=== PATIENT | female | born 1950 | race Caucasian/White ===

== ENCOUNTER → 2016-11-05 | Outpatient (CLI) | payer MEDICARE ==
[~2016-11-05] MED LIST: ASA CHILDREN'S81 MG PO; ASPIRIN EC81 MG PO; ATORVASTATIN CA80 MG PO; CALCIUM500 MG PO; CELEBREX200 MG PO; CINNAMON500 MG PO; CLARITIN DPS10 MG PO; CORTISPORIN OTI10 ML AU; DESYREL-DPS50 MG PO; EFFEXOR XR DPS150 MG PO; FEOSOL-DPS325 MG PO; FEOSOL45 MG PO; FLONASE 0.05% D16 GM NS; HYZAAR-100/251 TAB PO; IMDUR DPS30 MG PO; L-LYSINE500 M1 PO; LABETALOL HCL300 MG PO; LASIX DPS40 MG PO; LIPITOR DPS40 MG PO; LORTAB 7.5-3251 EACH PO; LOSARTAN-HCTZ1 EAC1 PO; LYSINE1000 MG PO; MAALOX DPS30 ML PO; NEPHRO-VITE1 TAB PO; NORCO 5-325 TA1 EACH PO; NORVASC5 MG PO; PLAQUENIL DPS200 MG PO; PRILOSEC DPS20 MG PO; PROTONIX40 MG PO; REQUIP DPS0.5 MG PO; REQUIP DPS2 MG PO; REQUIP4 MG PO; SURFAK DPS240 MG PO; THERA1 EACH PO; TRANDATE300 MG PO; TYLENOL DPS325 MG PO; ULTRAM DPS50 MG PO; VENLAFAXINE HC225 MG PO; VITAMIN B-121000 MCG PO; VITAMIN D50000 UNIT PO
== END | disposition home or self-care (01) ==
LOC: RAD.S 10:19
DX: R10.13 Epigastric pain (principal); R13.10 Dysphagia, unspecified; K44.9 Diaphragmatic hernia without obstruction or gangrene; K21.9 Gastro-esophageal reflux disease without esophagitis

== ENCOUNTER → 2016-12-05 | Outpatient (CLI) | payer MEDICARE | END | disposition home or self-care (01) | LOC: PTH.S 09:37 | DX: Z01.812 Encounter for preprocedural laboratory examination (principal) ==

== ENCOUNTER 2016-12-11 05:23 | Inpatient (IN) | payer MEDICARE ==
[~2016-12-11] VITALS: Ht 148.6 cm; Wt 88.0 kg
[~2016-12-11 05:23] MED LIST changes: -ASPIRIN EC81 MG PO; -ATORVASTATIN CA80 MG PO; -CINNAMON500 MG PO; -DESYREL-DPS50 MG PO; -FEOSOL-DPS325 MG PO; -FLONASE 0.05% D16 GM NS; -L-LYSINE500 M1 PO; -LABETALOL HCL300 MG PO; -LOSARTAN-HCTZ1 EAC1 PO; -NORCO 5-325 TA1 EACH PO; -PRILOSEC DPS20 MG PO; -REQUIP4 MG PO; -ULTRAM DPS50 MG PO; -VENLAFAXINE HC225 MG PO; -VITAMIN B-121000 MCG PO
[2016-12-14] MEDS ORDERED: ATORVASTATIN CA80 MG PO (17:40)
[2016-12-14] MEDS ORDERED: DESYREL-DPS50 MG PO (17:41)
[2016-12-14] MEDS ORDERED: REQUIP DPS0.5 MG PO (17:42)
[2016-12-14] MEDS ORDERED: REQUIP4 MG PO (17:42)
[2016-12-14] MEDS ORDERED: ULTRAM DPS50 MG PO (17:43)
[2016-12-14] MEDS ORDERED: LOSARTAN-HCTZ1 EAC1 PO (17:44)
[2016-12-14] MEDS ORDERED: PLAQUENIL DPS200 MG PO (17:44)
[2016-12-14] MEDS ORDERED: CELEBREX200 MG PO (17:45)
[2016-12-14] MEDS ORDERED: VENLAFAXINE HC225 MG PO (17:45)
[2016-12-14] MEDS ORDERED: LABETALOL HCL300 MG PO (17:45)
[2016-12-14] MEDS ORDERED: IMDUR DPS30 MG PO (17:45)
[2016-12-14] MEDS ORDERED: VITAMIN D50000 UNIT PO (17:46)
[2016-12-14] MEDS ORDERED: ASPIRIN EC81 MG PO (17:46)
[2016-12-14] MEDS ORDERED: L-LYSINE500 M1 PO (17:47)
[2016-12-14] MEDS ORDERED: CINNAMON500 MG PO (17:47)
[2016-12-14] MEDS ORDERED: CLARITIN DPS10 MG PO (17:48)
[2016-12-14] MEDS ORDERED: NORVASC5 MG PO (17:48)
[2016-12-14] MEDS ORDERED: FEOSOL-DPS325 MG PO (17:48)
[2016-12-14] MEDS ORDERED: VITAMIN B-121000 MCG PO (17:48)
[2016-12-14] MEDS ORDERED: NORCO 5-325 TA1 EACH PO (17:49)
[2016-12-14] MEDS ORDERED: PRILOSEC DPS20 MG PO (17:49)
[2016-12-14] MEDS ORDERED: FLONASE 0.05% D16 GM NS (17:49)
[2016-12-14] MEDS ORDERED: TYLENOL DPS325 MG PO (17:50)
--- NOTE | 2016-12-24 08:17 | DS ---
ADMIT: 12/11/2016 RM/LOC: 430 [facility] MR#: [id number] [id number] FRANCHESKA PIERCEAINE Sangita [address] [place] [address] General Discharge Summary SEX: F AGE: 66 : 1950 ADMISSION DATE: 12/11/2016 DISCHARGE DATE: 12/13/2016 FINAL DIAGNOSES: 1. Acute hypoxia postoperatively after hiatal hernia repair. 2. Chronic obstructive sleep apnea. 3. Chronic hypertension. 4. Coronary artery disease. 5. Obesity. HOSPITAL COURSE: The patient was admitted for planned hiatal hernia repair. She had a large hiatal hernia and Dr. Li and Dr. Locke did the surgery. Surgery was performed without major complications. However, the patient had hypoxia and decreased level of consciousness as she came out of anesthesia. She was admitted to intensive care unit for monitoring. We continued BiPAP. She maintained oxygenation with a BiPAP and O2. She was kept n.p.o. and IV fluids were running. On the morning of 12/12/2016, she was much more alert and pain control was good. Blood pressures have been stable in the 130s over 70s but did spike up to 150s to 170s systolically as she was starting to get up and around. She weaned off the BiPAP. Still required 1 L of oxygen. Her heart rate was stable and telemetry looked normal. On 12/13, the patient was feeling much better. She was off oxygen. She was able to eat and tolerate soft diet. She was up and around in the room. Plan was for dismissal. She was discharged home and she will follow up with me in appointment in about 2 weeks. She will follow up with surgeon in about 10 days. She is to leave her bandages on for the next 3 days and then can remove them on her own. Medicines are all of her usual home medications and she was also given orders to stick with a very soft diet, no dry foods such as breads or chips, and she should not eat solid meats and just only use very small amounts of meat. Su Ingram MD/ seasr JOB #: [id number] CC: Justin Li MD, Attending Physician Su Ingram MD, Family Physician
--- NOTE | 2017-01-13 13:24 | OR ---
ADMIT: 12/11/2016 RM/LOC: 308 [facility] MR#: [id number] [address] DAVID PIERCE [address] [place] [address] Operative/Delivery Room Report SEX: F AGE: 66 : 1950 SURGERY DATE: 12/11/2016 SURGEON: Justin Li MD PREOPERATIVE DIAGNOSES: Large hiatal hernia with chronic regurg, problems with her breathing and lungs, need for repair. POSTOPERATIVE DIAGNOSES: Large hiatal hernia with chronic regurg, problems with her breathing and lungs, need for repair. PROCEDURES: Laparoscopic hiatal hernia repair and gastropexy. SEPTIC TANK SERVICE TECHNICIAN: Derrick Locke MD ANESTHESIA: General endotracheal tube anesthesia. ESTIMATED BLOOD LOSS: 25 mL or less. INDICATION FOR PROCEDURE: Please see H and P. PROCEDURE IN DETAIL: After the risks, benefits, possible complications, and the alternatives had been explained and informed consent had been obtained, the patient was taken back to the operating room, underwent general anesthesia, and the surgical field was prepped and draped in a sterile manner. An incision was made in the left upper quadrant. Veress needle was inserted. The abdomen was insufflated with CO2. Once there was adequate insufflation, a 5 mm port was placed lateral, then the large port was placed, another kind of epigastric port right subcostal, one more left subcostal port. Liver retractor was placed and attached with the Cristian arm. Then, slowly, as you can see in picture #1 and #2, majority of her stomach was up in her chest and pulling it down, started off open to kind of the gastrohepatic ligament, started trying to get some of this omentum fat and dissected out along the right cipriano up anteriorly. Ultimately I took short gastrics with the Harmonic Scalpel along the greater curvature of the stomach and that let me get in on the left side in this left cipriano, it could start getting the sac worked off better and then finally, we had a good hold of it. Just kept working it all out of the chest. Slowly kept freeing things up, like I said, left side, right side, anteriorly and posteriorly. [place] like we got everything finally dissected out and off the sac and everything out of the chest and freed up toward, now everything stayed in the abdominal cavity. Did have a nice great length of esophagus though at this point. I did close the crural defect with multiple Endo Stitches using a tie knot as you can see in the pictures, closed it up nicely. Once that was done, like I said, did not feel a wrap was going to be needed or warranted at this time. We fixed hiatal hernia but we need to keep the stomach down in the abdominal cavity. So, I first, up along the cardia, placed one stitch at the triangular ligament out there and used a tie knot. Then used two Endo stitches as you can see in the second set of pictures, picture #4, to get a good bite of the stomach and just pulled it up ADMIT: 12/11/2016 RM/LOC: 308 [facility] MR#: [id number] [address] [place] [id number] DAVID PIERCE [address] [place] [address] Operative/Delivery Room Report SEX: F AGE: 66 : 1950 and pexy it to the anterior abdominal wall. We did that by using the suture passer to grab the stitches and bring them up transfascial stitch pexy in the stomach. Removed the liver retractor. Everything appeared dry. Did not see any bleeding or issues. Because of the size of this hiatal hernia, I did place a drain out the left lateral port up into the mediastinum to keep things drained adequately. Once that was done, it was sewn into position. The suture passer was used to close the large port, the fascia with an 0-Polysorb suture. All the rest of the ports were removed. The skin was all closed with 4-0 Monocryl. She tolerated it well. She was being extubated when I left the room, in stable and satisfactory condition. Justin Li MD/ sesar JOB #: [id number] CC: Justin Li, Attending Physician Su Ingram, Family Physician Su Ingram MD
== END 2016-12-13 13:10 | disposition home or self-care (01) | DRG 164 ==
LOC: 3ICU 05:23 → WOR 05:23 → 6PED 05:23 → 3ICU 11:07 → 4PCU 12-12 16:39
PROVIDERS: ADMIT Surgery
DX: R09.02 Hypoxemia (principal); Z68.41 Body mass index [BMI] 40.0-44.9, adult; I10 Essential (primary) hypertension; R40.4 Transient alteration of awareness; K44.9 Diaphragmatic hernia without obstruction or gangrene; R13.10 Dysphagia, unspecified; G47.33 Obstructive sleep apnea (adult) (pediatric); I25.10 Atherosclerotic heart disease of native coronary artery without angina pectoris; D64.9 Anemia, unspecified; G25.81 Restless legs syndrome; E66.9 Obesity, unspecified; K21.9 Gastro-esophageal reflux disease without esophagitis; R00.2 Palpitations; F32.9 Major depressive disorder, single episode, unspecified; M19.90 Unspecified osteoarthritis, unspecified site; E78.00 Pure hypercholesterolemia, unspecified; Z85.42 Personal history of malignant neoplasm of other parts of uterus; Z79.82 Long term (current) use of aspirin; Z95.5 Presence of coronary angioplasty implant and graft; Z96.653 Presence of artificial knee joint, bilateral